=== PATIENT | female | born 1955 | race Caucasian/White ===

== ENCOUNTER 2018-12-11 22:34 | Emergency (ER) | payer BC, MEDICAID ==
[2018-12-11] MEDS ORDERED: Sodium Chloride 0.9% 10 ML Syringe FLUSH PRN (22:51)
[2018-12-11] MEDS ORDERED: Lactated Ringers 1,000 ML IV SCH (23:00)
[2018-12-11] MEDS ORDERED: Dextrose 5%-Lactated Ringers 1,000 ML IV SCH (23:00)
--- NOTE | 2018-12-11 23:00 | EDM.PDOC ---
ED HPI GENERAL MEDICAL PROBLEM - General Chief Complaint: Abdominal Pain Stated Complaint: abdominal pain Time Seen by Provider: 12/11/18 22:40 Source of Information: Reports: Patient, Family, Old Records History Limitations: Reports: No Limitations - History of Present Illness INITIAL COMMENTS - FREE TEXT/NARRATIVE: Cesia comes into PSYCHIATRIC ED with escalating RUQ pains of 1 mos duration. Pain is sharp, nonradiating, and occurs in paroxysms. Sxs are worse with eating, and improve with fasting. There has been no nausea or vomiting. There is occasional diarrhea. She was seen in Clinic today and labs were taken, with an US ordered for this week. She has taken no meds. Of interest were similar sxs about 1 year ago, lasting for 2 weeks with a 10# wt loss, and then remission of sxs without treatment. She also recalls intermittent issues with diarrheal stools about a decade ago while working for the [employer]. Her colonoscopy 12 years ago was reportedly normal. RUQ ABDO PAIN Pain Score (Numeric/FACES): 10 - Related Data Allergies Allergy/AdvReac Type Severity Reaction Status Date / Time No Known Allergies Allergy Verified 12/11/18 22:41 Home Meds: Home Meds NK [No Known Home Meds] 12/11/18 [History] ED ROS GENERAL - Review of Systems Review Of Systems: See Below Constitutional: Reports: Decreased Appetite HEENT: Reports: No Symptoms Respiratory: Reports: No Symptoms Cardiovascular: Reports: No Symptoms Endocrine: Reports: No Symptoms GI/Abdominal: Reports: Abdominal Pain, Diarrhea : Reports: No Symptoms Musculoskeletal: Reports: No Symptoms Skin: Reports: No Symptoms Neurological: Reports: No Symptoms Psychiatric: Reports: No Symptoms Hematologic/Lymphatic: Reports: No Symptoms Immunologic: Reports: No Symptoms ED EXAM, GI/ABD - Physical Exam Exam: See Below Exam Limited By: No Limitations General Appearance: Alert, WD/WN, Anxious, Mild Distress, Obese Eyes: Bilateral: Normal Appearance, EOMI Ears: Normal External Exam Nose: Normal Inspection Throat/Mouth: Normal Inspection, Normal Lips, Normal Teeth, Normal Gums, Normal Oropharynx, Normal Voice Head: Normocephalic Neck: Normal Inspection, Supple Respiratory/Chest: Lungs Clear, Normal Breath Sounds, Chest Non-Tender Cardiovascular: Normal Peripheral Pulses, Regular Rate, Rhythm, No Murmur GI/Abdominal Exam: Normal Bowel Sounds, Soft, No Organomegaly, No Distention, No Mass, Tender (RUQ below RCM), Hernia (large umbilical hernia) (Female) Exam: Deferred Rectal (Female) Exam: Deferred Back Exam: Normal Inspection Extremities: Normal Inspection Neurological: Alert, Oriented, CN II-XII Intact, Normal Cognition, Normal Gait, No Motor/Sensory Deficits Psychiatric: Normal Affect, Anxious Skin Exam: Warm, Dry, Intact, Normal Color, No Rash Lymphatic: No Adenopathy Course - Vital Signs Text/Narrative:: Following assessment, I inserted an IV in the RUE and administered 1L LR, Toradol 30 mg IV x 2 without remission of sxs. Screening labs were normal. A RUQ US noted a solitary 1.2 cm gallstone without impaction, no pericholic inflammation detected; an Abd-Pelvic CT w contrast noted no specific abnormality. I administered a Percocet 5/325 mg tab and observed over the next hour, with partial remission of sxs. Last Recorded V/S: Last Vital Signs Temp 36.6 C 12/11/18 22:45 Pulse 71 12/11/18 22:45 Resp 20 12/11/18 22:45 BP 152/77 H 12/11/18 22:45 Pulse Ox 99 12/11/18 22:45 - Orders/Labs/Meds Orders: Active Orders 24 hr Category Date Time Status Abdomen Ltd [US] Stat Exams 12/11/18 22:52 Taken Abdomen Pelvis w Cont [CT] Stat Exams 12/11/18 23:40 Ordered Lactated Ringers [Ringers, Lactated] 1,000 ml Med 12/11/18 23:00 Active IV ASDIRECTED Sodium Chloride 0.9% [Saline Flush] Med 12/11/18 22:51 Active 10 ml FLUSH ASDIRECTED PRN Peripheral IV Insertion Adult [OM.PC] Routine Oth 12/11/18 22:51 Ordered Medication Orders Lactated Ringer's (Ringers, Lactated) 1,000 mls @ 200 mls/hr IV ASDIRECTED ARLETTE Last Admin: 12/11/18 23:38 Dose: 200 mls/hr Sodium Chloride (Saline Flush) 10 ml FLUSH ASDIRECTED PRN PRN Reason: Keep Vein Open Last Admin: 12/11/18 23:00 Dose: 10 ml Labs: Laboratory Tests 07/12/11/18 12/11/18 Range/Units 23:00 23:00 23:00 WBC 6.9 (4.5-12.0) X10-3/uL RBC 4.68 (3.23-5.20) x10(6)uL Hgb 12.7 (11.5-15.5) g/dL Hct 36.5 (30.0-51.3) % MCV 77.9 L (80-96) fL MCH 27.2 L (27.7-33.6) pg MCHC 34.9 (32.2-35.4) g/dL RDW 13.8 (11.5-15.5) % Plt Count 191 (125-369) X10(3)uL MPV 6.9 L (7.4-10.4) fL Neut % (Auto) 66.7 (46-82) % Lymph % (Auto) 22.1 (13-37) % Tyrrell % (Auto) 7.5 (4-12) % Eos % (Auto) 3 (1.0-5.0) % Baso % (Auto) 1 (0-2) % Neut # (Auto) 4.6 (1.6-8.3) # Lymph # (Auto) 1.5 (0.6-5.0) # Tyrrell # (Auto) 0.5 (0.0-1.3) # Eos # (Auto) 0.2 (0.0-0.8) # Baso # (Auto) 0.0 (0.0-0.2) # Sodium 140 (135-145) mmol/L Potassium 3.6 (3.5-5.3) mmol/L Chloride 106 (100-110) mmol/L Carbon Dioxide 26 (21-32) mmol/L BUN 15 (7-18) mg/dL Creatinine 0.8 (0.55-1.02) mg/dL Est Cr Clr Drug Dosing 76.20 mL/min Estimated GFR (MDRD) > 60 (>60) BUN/Creatinine Ratio 18.8 (9-20) Glucose 86 (80-116) mg/dL Calcium 8.5 L (8.6-10.2) mg/dL Total Bilirubin 1.4 H (0.1-1.3) mg/dL AST 21 (5-25) IU/L ALT 29 (12-36) U/L Alkaline Phosphatase 66 (56-112) IU/L C-Reactive Protein < 0.2 L (0.5-0.9) mg/dL Total Protein 7.4 (6.0-8.0) g/dL Albumin 3.8 (3.2-4.6) g/dL Globulin 3.6 g/dL Albumin/Globulin Ratio 1.1 Urine Color (YELLOW) Urine Appearance (CLEAR) Urine pH (5.0-6.5) Ur Specific Hawkeye (1.010-1.025) Urine Protein (NEGATIVE) mg/dL Urine Glucose (UA) (NORMAL) mg/dL Urine Ketones (NEGATIVE) mg/dL Urine Occult Blood (NEGATIVE) Urine Nitrite (NEGATIVE) Urine Bilirubin (NEGATIVE) Urine Urobilinogen (NEGATIVE) mg/dL Ur Leukocyte Esterase (NEGATIVE) Urine RBC (0-5) Urine WBC (0-5) Ur Squamous Epith Cells (NS,R,O) Urine Bacteria (NS) 12/11/18 Range/Units 23:10 WBC (4.5-12.0) X10-3/uL RBC (3.23-5.20) x10(6)uL Hgb (11.5-15.5) g/dL Hct (30.0-51.3) % MCV (80-96) fL MCH (27.7-33.6) pg MCHC (32.2-35.4) g/dL RDW (11.5-15.5) % Plt Count (125-369) X10(3)uL MPV (7.4-10.4) fL Neut % (Auto) (46-82) % Lymph % (Auto) (13-37) % Tyrrell % (Auto) (4-12) % Eos % (Auto) (1.0-5.0) % Baso % (Auto) (0-2) % Neut # (Auto) (1.6-8.3) # Lymph # (Auto) (0.6-5.0) # Tyrrell # (Auto) (0.0-1.3) # Eos # (Auto) (0.0-0.8) # Baso # (Auto) (0.0-0.2) # Sodium (135-145) mmol/L Potassium (3.5-5.3) mmol/L Chloride (100-110) mmol/L Carbon Dioxide (21-32) mmol/L BUN (7-18) mg/dL Creatinine (0.55-1.02) mg/dL Est Cr Clr Drug Dosing mL/min Estimated GFR (MDRD) (>60) BUN/Creatinine Ratio (9-20) Glucose (80-116) mg/dL Calcium (8.6-10.2) mg/dL Total Bilirubin (0.1-1.3) mg/dL AST (5-25) IU/L ALT (12-36) U/L Alkaline Phosphatase (56-112) IU/L C-Reactive Protein (0.5-0.9) mg/dL Total Protein (6.0-8.0) g/dL Albumin (3.2-4.6) g/dL Globulin g/dL Albumin/Globulin Ratio Urine Color Yellow (YELLOW) Urine Appearance Clear (CLEAR) Urine pH 5.0 (5.0-6.5) Ur Specific Hawkeye 1.010 (1.010-1.025) Urine Protein Negative (NEGATIVE) mg/dL Urine Glucose (UA) Normal (NORMAL) mg/dL Urine Ketones Negative (NEGATIVE) mg/dL Urine Occult Blood Negative (NEGATIVE) Urine Nitrite Negative (NEGATIVE) Urine Bilirubin Negative (NEGATIVE) Urine Urobilinogen Normal (NEGATIVE) mg/dL Ur Leukocyte Esterase Small H (NEGATIVE) Urine RBC 0-5 (0-5) Urine WBC 0-5 (0-5) Ur Squamous Epith Cells Few H (NS,R,O) Urine Bacteria Few H (NS) Meds: Medications Generic Name Dose Route Start Last Admin Trade Name Freq PRN Reason Stop Dose Admin Lactated Ringer's 1,000 mls @ 200 mls/hr 12/11/18 23:00 12/11/18 23:38 Ringers, Lactated IV 200 mls/hr ASDIRECTED ARLETTE Administration Sodium Chloride 10 ml 12/11/18 22:51 12/11/18 23:00 Saline Flush FLUSH 10 ml ASDIRECTED PRN Administration Keep Vein Open Discontinued Medications Generic Name Dose Route Start Last Admin Trade Name Freq PRN Reason Stop Dose Admin Iopamidol 100 ml 12/11/18 23:46 12/11/18 23:56 Isovue-370 (76%) IV 12/11/18 23:47 100 ml ONETIME ONE Administration Ketorolac Tromethamine 30 mg 12/11/18 23:04 12/11/18 23:09 Toradol IVPUSH 12/11/18 23:05 30 mg ONETIME ONE Administration Ketorolac Tromethamine 30 mg 12/11/18 23:46 12/11/18 23:51 Toradol IVPUSH 12/11/18 23:47 30 mg ONETIME ONE Administration Oxycodone/Acetaminophen 1 tab 12/12/18 00:55 12/12/18 01:01 Percocet 325-5 Mg PO 12/12/18 00:56 1 tab ONETIME ONE Administration Departure - Departure Time of Disposition: 01:53 Disposition: Home, Self-Care 01 Condition: Fair Clinical Impression: Abdominal pain in female patient - Discharge Information *PRESCRIPTION DRUG MONITORING PROGRAM REVIEWED*: Not Applicable *COPY OF PRESCRIPTION DRUG MONITORING REPORT IN PATIENT RAMILA: Not Applicable Instructions: Abdominal Pain, Adult, [id number] Referrals: PCP,None [Primary Care Provider] - Forms: ED Department Discharge Additional Instructions: SEE YOUR PRIMARY CARE PROVIDER THIS MORNING FOR YOUR PAIN MANAGEMENT. - Problem List & Annotations (1) Abdominal pain in female patient SNOMED Code(s): 30449140, [id number] Code(s): R10.9 - UNSPECIFIED ABDOMINAL PAIN Status: Acute Current Visit: Yes Annotation/Comment:: I suggested rest, moist heat, and follow up with PCP. - Problem List Review Problem List Initiated/Reviewed/Updated: Yes - My Orders Last 24 Hours: My Active Orders 12/11/18 22:51 Sodium Chloride 0.9% [Saline Flush] 10 ml FLUSH ASDIRECTED PRN Peripheral IV Insertion Adult [OM.PC] Routine 12/11/18 22:52 Abdomen Ltd [US] Stat 12/11/18 23:00 Lactated Ringers [Ringers, Lactated] 1,000 ml IV ASDIRECTED 12/11/18 23:40 Abdomen Pelvis w Cont [CT] Stat - Assessment/Plan Last 24 Hours: My Active Orders 12/11/18 22:51 Sodium Chloride 0.9% [Saline Flush] 10 ml FLUSH ASDIRECTED PRN Peripheral IV Insertion Adult [OM.PC] Routine 12/11/18 22:52 Abdomen Ltd [US] Stat 12/11/18 23:00 Lactated Ringers [Ringers, Lactated] 1,000 ml IV ASDIRECTED 12/11/18 23:40 Abdomen Pelvis w Cont [CT] Stat Plan: Follow up with PCP later this am.
[2018-12-11] MEDS ORDERED: Ketorolac 30 MG/ML SDV IVPUSH ONE ×2 (23:04→23:46)
[2018-12-11] MEDS ORDERED: Iopamidol 755 Mg/ML 100 ML Bottle IV ONE (23:46)
[2018-12-12] MEDS ORDERED: Acetaminophen/oxyCODONE 325-5 MG Tab PO ONE (00:55)
== END 2018-12-12 02:02 | disposition home or self-care (01) ==
LOC: FB.ED 22:34
DX: R10.11 Right upper quadrant pain (principal)
CPT/HCPCS: 36415; 74177; 76705; 80053; 81001; 85025; 86140; 96361; 96374; 96376; 99284; A9270; J1885; J7120; Q9967